=== PATIENT | female | born 1955 | race African-American/Black ===

== ENCOUNTER 2023-08-03 07:09 | Inpatient (IN) | payer OTHER, SELFPAY ==
[2023-08-03] VITALS (11 sets, daily range): BP systolic 102–157; BP diastolic 57–123; BMI 30.6
--- NOTE | 2023-08-03 01:43 | ED.GENMED ---
History of Present Illness
<DUANE Cross - Last Filed: 08/03/23 05:30>
General
Chief Complaint: Breathing Problem
Source: patient and family
Exam Limitations: none
Time Seen by Provider: 08/03/23 01:16
Nursing documentation reviewed up to this point in time: agreed with
Travel History
Have you had any contact with someone who has COVID-19?: No
Do you have any symptoms of coronavirus? Fever > 100 degrees, chills, cough, shortness of breath, sore throat, loss of taste or smell, muscle aches, or headache?: Yes
Symptoms:: increased work of breathing
History of Present Illness
History of Present Illness:
This is a 67 year old female, with a PMH of HTN, DM, HLD, and asthma, who presents to the ED with her daughter c/o SOB x 23 hours. Pt states she awoke yesterday around 4 am with shortness of breath and used a nebulizer treatment 2 hours later, which
did not help alleviate her symptoms. She used her albuterol inhaler once which also did not help. Her symptoms are constant. Pt is also experiencing chest tightness which started around the same time. Position changes do not help to alleviate her
symptoms. Pt has had previous asthma exacerbations and these symptoms feel similar to those in the past. She denies any cough, congestion, sore throat, fever, chills, n/v, jaw pain, or arm pain.
Pt has not seen a amusement or recreation card checker and was told her PCP would recommend one for her. She last saw her PCP 07/18/23, but denies any changes to her medical history or medications. Pt has a family hx of asthma and DM, denies any family hx of CAD. Denies
tobacco, alcohol, or drug use.
Past History
<DUANE Cross - Last Filed: 08/03/23 05:30>
Past History
ED Past Medical History: Asthma, HTN, Hypercholesterolemia, IDDM, Other (Obesity, elevated IgE level) and Other (History of pneumonia, frequent urination; acute renal failure, questionably related to ELKIN inhibitor that was initiated August 2012
hospitalization.)
ED Past Surgical History: Other (Tubal ligation 20 years ago)
Patient has exhibited threatening behavior?: No
Social History
Tobacco: Former smoker
Alcohol: None
Drug: None
Personal: Single
Living: with family
Employment: Not employed
Family History
Family History: Diabetes, CAD and Other (Mother with renal disease)
Review of Systems
<DUANE Cross - Last Filed: 08/03/23 05:30>
Review of Systems
Allergies reviewed?: Yes
Other source history: family
Constitutional: Reports no symptoms; Denies fever or chills
EENT: Reports no symptoms; Denies sore throat or runny nose
Respiratory: Reports trouble breathing and other (chest tightness); Denies cough
Cardiac: Reports chest pain (chest tightness); Denies palpitations
ABD/GI: Reports no symptoms; Denies nausea or vomiting
Musculoskeletal: Reports no symptoms
Skin: Reports no symptoms
Neurological: Reports no symptoms
Phy Exam
<DUANE Cross - Last Filed: 08/03/23 05:30>
General Physical Exam
General Presentation: moderate distress
General age: appears stated age
General Skin: warm and dry
General Habitus: obese
General Mental: alert and anxious
General Hydration: appears well hydrated
ENT Exam
ENT Exam: pharynx normal, neck supple, normocephalic and swallowing well
Cardiovascular Exam
Cardiovascular Exam: regular rate/rhythm, no edema and no murmur
Heart Sounds: normal
Pulmonary Exam
Pulmonary Exam: decreased breath sounds, respiratory distress and other (speaking in 2-3 word sentences)
Respiratory Effort: tachypnea
Oxygen Status: room air
Cough: no cough
Respirations: moderate effort
Breath Sounds: Absent breath sounds: generalized
Gastrointestinal Exam
Gastrointestinal Exam: normal bowel sounds, non tender, soft and non distended
Palpation: generalized: No tenderness
Neurological Exam
Neurological Exam: alert and oriented x3
Musculoskeletal Exam
Musculoskeletal Exam: no edema
Skin Exam
Skin Exam: normal color and warm/dry
Psychiatric Exam
Psychiatric Exam: normal mood/affect
Scores
<DUANE Cross - Last Filed: 08/03/23 05:30>
Heart Failure Risk
Heart Failure Risk Score: Not Applicable
Course
<DUANE Cross - Last Filed: 08/03/23 05:30>
Orders/Labs/Results
Orders:
Orders
08/03/23 01:03
Electrocardiogram (*1) Urgent
Reason for Study: Other
Other Reason for Exam: Respiratory Distress
Cardiac Monitoring- Treatment ONCE
EKG- Treatment ONCE
IV Insert/Care/Rem.- Treatment PRN
CR Chest - 2 Views Urgent
Comment:
Reason For Exam: respiratory distress
O2 Therapy [RESP] Urgent
Titrate/Wean O2 to maintain O2 sat greater than (%): 93
Special Instructions: TO MAINTAIN CONTINUOUS O2 SATS >/= 93%
Pulse Ox/cont/shift [RESP] Urgent
Quantity: 1
Special Instructions: continuous pulse ox
08/03/23 01:34
Complete Blood Count/With Diff Urgent
Comprehensive Metabolic Panel Urgent
NT-proBNP Urgent
Troponin I Urgent
08/03/23 02:15
Ipratropium/Albuterol Sulfate [Duoneb] 3 ml INH R NOW ONE
08/03/23 02:25
Nitroglycerin Sublingual [Nitrostat (Sublingual)] 0.4 mg SL [id number] PRN
08/03/23 04:00
EKG [Electrocardiogram (*1)] Urgent
Reason for Study: Chest Pain
08/03/23 04:01
Troponin I Urgent
08/03/23 05:21
Albuterol Sulfate [Ventolin Nebules] 10 mg INH R NOW STA
Dexamethasone Sod Phosphate [Decadron] 10 mg IV NOW STA
08/03/23 06:22
COVID-19 Antigen Urgent
Source: Nasal Swab
Influenza A+B Rapid Molecular Urgent
UTE Source: Nasal Swab
Specimen Description:
Abnormal Lab Results
08/03/23
01:34
RBC 3.82 L 10^6/uL
(4.20-5.40)
Hgb 10.6 L g/dL
(12.0-16.0)
Hct 32.6 L %
(37.0-47.0)
MCHC 32.5 L g/dL
(33.0-37.0)
Neutrophils % 39.7 L %
(42.2-75.2)
Monocytes % 9.5 H %
(1.7-9.3)
BUN 23 H mg/dl
(7-17)
Glucose 292 H mg/dl
(70-99)
Troponin I 0.035 H* ng/ml
08/03/23 01:34
08/03/23 01:34
Vital Signs
Initial and Last Documented VS:
Initial Vital Signs
Temp Pulse Resp BP Pulse Ox
98.3 F 100 28 157/87 100
08/03/23 01:00 08/03/23 01:00 08/03/23 01:00 08/03/23 01:00 08/03/23 01:00
Last Documented Vital Signs
Temp Pulse Resp BP Pulse Ox
98.3 F 112 15 143/83 98
08/03/23 01:00 08/03/23 06:00 08/03/23 06:00 08/03/23 06:00 08/03/23 06:15
<Giorgio Leonard, - Last Filed: 08/03/23 06:42>
Orders/Labs/Results
Orders:
Orders
08/03/23 01:03
Electrocardiogram (*1) Urgent
Reason for Study: Other
Other Reason for Exam: Respiratory Distress
Cardiac Monitoring- Treatment ONCE
EKG- Treatment ONCE
IV Insert/Care/Rem.- Treatment PRN
CR Chest - 2 Views Urgent
Comment:
Reason For Exam: respiratory distress
O2 Therapy [RESP] Urgent
Titrate/Wean O2 to maintain O2 sat greater than (%): 93
Special Instructions: TO MAINTAIN CONTINUOUS O2 SATS >/= 93%
Pulse Ox/cont/shift [RESP] Urgent
Quantity: 1
Special Instructions: continuous pulse ox
08/03/23 01:34
Complete Blood Count/With Diff Urgent
Comprehensive Metabolic Panel Urgent
NT-proBNP Urgent
Troponin I Urgent
08/03/23 02:15
Ipratropium/Albuterol Sulfate [Duoneb] 3 ml INH R NOW ONE
08/03/23 02:25
Nitroglycerin Sublingual [Nitrostat (Sublingual)] 0.4 mg SL [id number] PRN
08/03/23 04:00
EKG [Electrocardiogram (*1)] Urgent
Reason for Study: Chest Pain
08/03/23 04:01
Troponin I Urgent
08/03/23 05:21
Albuterol Sulfate [Ventolin Nebules] 10 mg INH R NOW STA
Dexamethasone Sod Phosphate [Decadron] 10 mg IV NOW STA
08/03/23 06:22
COVID-19 Antigen Urgent
Source: Nasal Swab
Influenza A+B Rapid Molecular Urgent
UTE Source: Nasal Swab
Specimen Description:
Abnormal Lab Results
08/03/23
01:34
RBC 3.82 L 10^6/uL
(4.20-5.40)
Hgb 10.6 L g/dL
(12.0-16.0)
Hct 32.6 L %
(37.0-47.0)
MCHC 32.5 L g/dL
(33.0-37.0)
Neutrophils % 39.7 L %
(42.2-75.2)
Monocytes % 9.5 H %
(1.7-9.3)
BUN 23 H mg/dl
(7-17)
Glucose 292 H mg/dl
(70-99)
Troponin I 0.035 H* ng/ml
08/03/23 01:34
08/03/23 01:34
Vital Signs
Initial and Last Documented VS:
Initial Vital Signs
Temp Pulse Resp BP Pulse Ox
98.3 F 100 28 157/87 100
08/03/23 01:00 08/03/23 01:00 08/03/23 01:00 08/03/23 01:00 08/03/23 01:00
Last Documented Vital Signs
Temp Pulse Resp BP Pulse Ox
98.3 F 112 15 143/83 98
08/03/23 01:00 08/03/23 06:00 08/03/23 06:00 08/03/23 06:00 08/03/23 06:15
<DUANE Cross - Last Filed: 08/03/23 05:30>
*Critical Care Note
Total Time (30-74mins, 75-104mins- exclusive of procedures): Not Applicable
ED Attending Note
<DUANE Cross - Last Filed: 08/03/23 05:30>
-
Portions of this chart may have been created with voice recognition software.� Occasional wrong word or��sound alike� substitutions may have occurred due to the inherent limitations of voice recognition software.
<Giorgio Leonard, - Last Filed: 08/03/23 06:42>
ED Attending Note
Patient seen and examined by attending physician: Yes
I performed the substantive portion of visit, reviewed & personally made and approve the management plan that is documented in note by myself or JAKE.: Yes
ED Attending Note:
This a pleasant 59-year-old female presents with shortness of breath for the last day. She states that she awakened yesterday around 4 AM with shortness of breath. She did use her nebulizer which did not seem to help. Patient states that she has
tightness and squeezing in her chest.
Vital signs are stable. Patient not hypoxic
Nursing note reviewed. I agree with nursing documentation up to this point in time.
Home Meds and allergies reviewed.
NUMBER AND COMPLEXITY OF PROBLEMS ADDRESSED AT THE ENCOUNTER
� Chronic conditions affecting care: Insulin-dependent diabetes mellitus, hypertension, hyperlipidemia
� Acute Exacerbation and/or Progression of Chronic Illness: Asthma exacerbation
� Differential Diagnosis includes: Asthma, ischemia, ACS, musculoskeletal chest pain
AMOUNT AND/OR COMPLEXITY OF DATA TO BE REVIEWED AND ANALYZED
I performed an independent evaluation of the following and my interpretation is:
EKG: EKG shows sinus rhythm rate of 89 with normal intervals, normal axis. Nonspecific T wave changes from previous EKG dated November 23, 2022.
CT:
X-rays: Possible right lower lobe pneumonia.
Ultrasound:
Laboratory Studies: Troponin 0.035, BMP is 0.035
Other:
Review of other/old records: Echocardiogram dated 11/27/2022: Left ejection fraction is 60 to 65%. There is trace tricuspid regurg.
Clinical information was obtained by an independent historian: Family present at the bedside
Prescriptions/Medications Considered but not given: Aspirin considered but patient allergic
Further testing considered but not performed:
RISK OF COMPLICATIONS AND/OR MORBIDITY OR MORTALITY OF PATIENT MANAGEMENT
Social determinants of health affecting care: Good Social Support
Discussion with other providers:
Escalation of care including admission/observation vs risk of discharge considered:
CRITICAL CARE NOTE:
Total Time (exclusive of procedures):
Update:
Discharge Plan
Departure
Patient Disposition: Admit
Date of Disposition: 08/03/23
Time of Disposition: 06:35
Admit to: Telemetry
Presentation/result/management discussed w/ accepting MD/DO: Hospitalist
Condition: Good
Discharge Problem:
Asthma exacerbation in COPD
Prescriptions:
No Action
sertraline [Zoloft] 100 mg Tablet
200 mg PO DAILY Qty: 0
Patient Comments:
Pt states she cannot take generic form of this med (noted 02/02/19).
Rx Instructions:
BRAND NECESSARY
quetiapine [Seroquel] 300 mg tablet
300 mg PO HS
Rx Instructions:
BRAND NECESSARY
lisinopril-hydrochlorothiazide 10-12.5 mg tablet
1 tab PO DAILY Qty: 30 0RF
albuterol sulfate [Ventolin HFA] 90 mcg/actuation HFA aerosol inhaler
4 puff inhalation Q2H PRN (Reason: shortness of breath or wheezing) Qty: 8.5 0RF
Rx Instructions:
give with spacer
insulin glargine [Lantus Solostar U-100 Insulin] 300 UNITS/3 ML insulin pen
30 unit SC HS Qty: 0 0RF
insulin aspart U-100 [Novolog FlexPen U-100 Insulin] 300 UNITS/3 ML insulin pen
20 unit SC AC
Referrals:
PRIVATE,PHYSICIAN [Family Provider] -
Interventions
Interventions:
*Risk Screen - Suicide Last Done: 08/03/23 01:40
*Neglect/Abuse Screening Last Done: 08/03/23 01:40
ED- Fall Risk Assessment Last Done: 08/03/23 01:37
*ED COVID-19 Vaccine History Last Done: 08/03/23 02:45
ED- Cardiac Assessment Last Done: 08/03/23 01:37
ED- Pulmonary Assessment Last Done: 08/03/23 01:37
[2023-08-03 01:57] LABS: % Basophils 0.9 % (0-2); % Eosinophils 2.7 % (0-6); % Immature Granulocytes 0.2 % (0-0.5); % Monocytes 9.5 % (1.7-9.3); % Neutrophils 39.7 % (42.2-75.2); Absolute Basophils 0.1 10^3/uL (0-0.2); Absolute Eosinophils 0.2 10^3/uL (0-0.7); Absolute Lymphocytes 2.6 10^3/uL (1.2-3.4); Absolute Monocytes 0.5 10^3/uL (0.1-0.6); Absolute Neutrophils 2.2 10^3/uL (1.4-6.5); Hematocrit 32.6 % (37.0-47.0); Hemoglobin 10.6 g/dL (12.0-16.0); Mean Corp Hgb Conc. 32.5 g/dL (33.0-37.0); Mean Corpuscular Hgb 27.7 pg (27.0-31.0); Mean Corpuscular Volume 85.3 fL (81.0-99.0); Nucleated Red Blood Cells % 0 %; Platelet Count 231 10^3/uL (130-400); Red Blood Cell Count 3.82 10^6/uL (4.20-5.40); Red Cell Dist. Width 13.9 % (11.5-14.5); White Blood Cell Count 5.6 10^3/uL (4.8-10.8)
[2023-08-03 02:05] LABS: ALT (SGPT) 15 U/L (0-35); AST (SGOT) 22 U/L (14-36); Albumin 3.9 g/dl (3.5-5.0); Alkaline Phosphatase 78 U/L (38-126); Blood Urea Nitrogen 23 mg/dl (7-17); Calcium 9.5 mg/dl (8.4-10.2); Carbon Dioxide 28 mmol/L (22-30); Chloride 101 mmol/L (98-107); Estimated Creatinine Clearance 53 ml/min; Glucose 292 mg/dl (70-99); Potassium 4.3 mmol/L (3.5-5.1); Sodium 139 mmol/L (135-145); Total Bilirubin 0.5 mg/dl (0.2-1.3); Total Protein 6.6 g/dl (6.3-8.2); eGFR > 60.00
[2023-08-03 02:17] LABS: NT-proBNP 199 pg/ml; Troponin I 0.035 ng/ml
[2023-08-03] MEDS: DUONEB 3 ML INH ×4 (02:45→20:44)
[2023-08-03] MEDS: NITROSTAT (SUBLINGUAL) 0.400000000000000022 MG SL ×4 (02:45→23:20)
[2023-08-03 04:48] LABS: Troponin I 0.032 ng/ml
[2023-08-03] MEDS: VENTOLIN NEBULES 10 MG INH (05:24)
[2023-08-03] MEDS: DECADRON 10 MG IV (05:25)
--- NOTE | 2023-08-03 06:41 | HPS.HSE ---
Family Physician
-
Family Physician: PHYSICIAN PRIVATE
Chief Complaint
-
SOB
History of Present Illness
Patient is a 67y F with PMH significant for asthma, HTN and DM-II who presents to ED complaining of SOB. Patient states that she woke AM around 4 Am with SOB and some chest tightness / heaviness. Her symptoms were similar to prior
exacerbations of asthma. Patient has been using home inhalers / nebulizers for the past day or so without significant improvement in her symptoms. Patient denies significant cough, fevers / chills, N/V/D, etc.
She states that she felt completely well on Sunday evening when going to bed.
No recent travel and no known sick contacts.
Patient has had multiple such episodes in the past.
In the ED, patient is only minimally improved after hour-long neb.
Medical History
Past Medical History
Past Medical History: Reports Other
Additional Past Medical History:
Moderate Persistent Asthma
Obesity
Bipolar Depression
Hypertension
Anemia of Chronic Disease
DM-II
Past Surgical History: Reports Other
Additional Past Surgical History:
Tubal Ligation
Social History
Tobacco: Former Smoker (Quit smoking 35 years ago. Approx 10 pack years total use.)
Alcohol: None
Drug: None
Family History
Family History: Not pertinent
Allergies / Home Medications
Allergies reflects when Allergies were last updated in [facility].
Home Medications with original date entered in [facility]
Allergy/Medication List:
Allergies
Allergy/AdvReac Type Severity Reaction Status Date / Time
aspirin [Aspirin] Allergy N/V/dizzine Verified 08/03/23 01:03
ss
shellfish derived Allergy SWELLING/SO Verified 08/03/23 01:03
B
Home Medications
sertraline 100 mg tablet (Zoloft) 200 mg PO DAILY Mental Health/Anxiety ##0 02/02/19
quetiapine 300 mg tablet (Seroquel) 300 mg PO HS Mental Health/Anxiety 11/23/22
albuterol sulfate 90 mcg/actuation aerosol inhaler (Ventolin HFA) 4 puff inhalation Q2H PRN shortness of breath or wheezing #8.5 grams 11/28/22
insulin glargine 100 unit/mL (3 mL) subcutaneous pen (Lantus Solostar U-100 Insulin) 30 unit (0.3 mL) SC HS Diabetes #0 mL 11/28/22
lisinopril 10 mg-hydrochlorothiazide 12.5 mg tablet 1 tab PO DAILY #30 tabs 11/28/22
insulin aspart U-100 100 unit/mL (3 mL) subcutaneous pen (Novolog FlexPen U-100 Insulin aspart) 20 unit SC AC Diabetes 08/03/23
Review of Systems
-
History Source: Patient
A 12 point ROS was completed and negative except as noted: Yes
Constitutional: Reports Fatigue; Denies Fever or Chills
Respiratory: Reports Trouble Breathing; Denies Cough or Hemoptysis
Cardiac: Reports Chest Pain and Palpitations; Denies Diaphoresis or Syncope
Abdomen/GI: Denies Abdominal Pain, Nausea, Vomiting or Diarrhea
: Denies Dysuria or Frequency
Musculoskeletal: Denies Joint Pain or Edema
Neurological: Denies Dizzy or Headache
Psych: Reports Depression and Anxiety
Physical Exam
Vital Signs
Vital Signs
Temp Pulse Resp BP Pulse Ox
98.3 F 112 15 143/83 98
08/03/23 01:00 08/03/23 06:00 08/03/23 06:00 08/03/23 06:00 08/03/23 06:15
Physical Exam
General: Other (67y F tremulous and in moderate distress due to dyspnea.)
HEENT: Moist mucous membranes and Other (Thick neck.)
Respiratory: Other (Markedly diminished breath sounds throughout.)
Cardiac: S1/S2 and Tachycardia; No Murmur
GI: Soft, Non Tender, Non Distended and Normal Bowel Sounds
Musculoskeletal: No Clubbing, No Cyanosis and No Edema
Neuro: AO x 3
Laboratory Results
-
08/03/23 01:34
08/03/23:34
Laboratory Results
Total Bilirubin 0.5 mg/dl (0.2-1.3) 08/03/23 01:34
AST 22 U/L (14-36) 08/03/23 01:34
ALT 15 U/L (0-35) 08/03/23 01:34
Alkaline Phosphatase 78 U/L (38-126) 08/03/23 01:34
Troponin I 0.032 ng/ml 08/03/23 04:01
Impression/Plan
-
A/P: Patient is a 67y F with PMH significant for asthma, DM-II and hypertension who presents to ED complaining of SOB x 24 hours.
Asthma with Acute Exacerbation
- Admit for further evaluation and treatment.
- Markedly diminished breath sounds / air movement on exam.
- Multiple prior episodes with similar presentation - last admitted here 11/2022.
- Patient takes no daily controlled medications, etc for her asthma - which is at least moderate.
- IV steroids, nebs, supportive care, etc.
- Use Xopenex PRN to try and minimize tremulousness / tachycardia.
- Pulmonary evaluation for additional recommendations.
- Patient would benefit from ongoing Pulmonary follow-up as an outpatient and -likely - maintenance medication(s).
- Follow for clinical improvement and taper steroids as able.
DM-II
- Stable. Continue basal : bolus insulin regimen.
- Update A1C.
Benign Hypertension
- Stable. Continue lisinopril.
- Adjust regimen as needed.
Anemia of Chronic Disease
- Hgb is near known baseline. No reported evident blood loss, etc.
- Check iron studies, heme test stools, etc.
- Follow H&H for any changes.
Abnormal Troponin
- Suspect non-MO troponin elevation due to asthma, tachycardia, etc.
- Continue to follow troponin for changes.
- Monitor for any new / worsening chest pain, etc.
- Monitor on telemetry for now.
Bipolar Depression
- Anxious in the ED likely due to combination of dyspnea and albuterol.
- Continue usual home medications.
DVT Prophylaxis: Lovenox
Code Status: Full
[2023-08-03 06:59] LABS: COVID-19 Antigen Negative (Negative)
[2023-08-03 09:26] LABS: Glucose - Point of Care 295 mg/dl (70-99)
--- NOTE | 2023-08-03 09:29 | W.PN.HOSP.TC ---
Today's Communication/Plan
-
Continue nebs, steroids
D-dimer
Pulmonary consult
Assessment / Plan
Assessment / Plan
Gen-AAOx3, NAD, obese
HEENT-NC, AT, anicteric, clear oral mm
Neck-supple
CV-reg, no M, +S1/S2
Lungs-decreased breath sounds bilaterally
Abd-soft, NT, ND
Ext-no edema
Musculoskeletal-no cyanosis, clubbing
Skin-warm and dry
Neuro-grossly non-focal
Psych-calm, cooperative
Acute hypoxic respiratory insufficiency -differential diagnosis includes acute asthma exacerbation, pulmonary embolism, etc. No evidence of heart failure. Chest x-ray read as clear, low lung volumes. Check D-dimer. Pulse ox normal on room air.
Acute asthma exacerbation -not wheezing on exam but does have significantly decreased breath sounds bilaterally. Continue steroids, nebs. Pulmonary consulted. On Flovent and albuterol at home on as needed basis. 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
Troponin elevation -repeat troponin normal. Suspect initial troponin elevation is a non-LA troponin elevation related to acute asthma exacerbation.
Chronic normocytic anemia -will need outpatient follow-up with PCP.
DM2 with hyperglycemia -glucose 292 this morning. Resume home insulin regimen. Anticipate steroid-induced hyperglycemia as well.
Essential hypertension with hypertensive urgency -repeat blood pressure improving. Resume home medications.
Bipolar depression
obesity due to excess calories
Full code
Anticipated Discharge: 24 - 48 hours
Subjective/Interval History
-
Date of Service: August 03, 2023
Patient seen and examined. Complaining of shortness of breath. Looks otherwise comfortable.
Objective Data
-
Labs:
Laboratory Results
08/03/23
01:34
WBC 5.6
Hgb 10.6 L
Hct 32.6 L
Plt Count 231
Sodium 139
Potassium 4.3
Chloride 101
Carbon Dioxide 28
BUN 23 H
Creatinine 1.0
Glucose 292 H
Calcium 9.5
Total Bilirubin 0.5
AST 22
ALT 15
Alkaline Phosphatase 78
Vital Signs:
Vital Signs
Temp Pulse Resp BP Pulse Ox
98.4 F 104 24 157/90 99
08/03/23 08:46 08/03/23 08:46 08/03/23 08:46 08/03/23 08:46 08/03/23 08:46
Review of Systems
-
History Source: Patient
All other systems: Reviewed and negative
[2023-08-03 09:33] LABS: Troponin I 0.034 ng/ml
--- NOTE | 2023-08-03 10:00 | PTCARENOTE ---
Rec'd Pt from ED to Room 418-1, [address]. Pt ambulated from stretcher to bed. Pt is AOOx3. Oriented to room with call benavidez in place.
[2023-08-03] MEDS: ZOLOFT 200 MG PO (10:21)
[2023-08-03] MEDS: ZESTRIL 10 MG PO (10:21)
[2023-08-03] MEDS: NOVOLOG FLEXPEN 20 UNITS SC ×3 (10:21→18:33)
[2023-08-03] MEDS: NOVOLOG FLEXPEN-MODERATE RESISTANCE 3 UNITS SC (10:22)
[2023-08-03] MEDS: SEROQUEL 300 MG PO (11:25)
--- NOTE | 2023-08-03 11:42 | CON.PUL ---
Addendum entered and electronically signed by Vernon Ga MD 08/03/23 13:57:
CT angiogram reviewed: Showed no acute pulmonary embolism. No evidence for pneumonia.
With diminished breath sounds bilaterally: Similar to prior presentations here at [facility].
Continue with asthma exacerbation therapy for now.
I again stressed the point to the patient for the need to follow-up.
Original Note:
Consultation
Consultation Request
Date/Time Consultation Requested: 08/03/2023
Date/Time Consultation Performed: 08/03/2023
Requesting Provider: Dr. Roland
Performing Provider: Dr. Vernon Quinones
Reason for Consultation: Exertional dyspnea-acute asthma exacerbation.
Medical History
-
History of Present Illness:
67-year-old woman with history of asthma, hypertension, type 2 diabetes came to the emergency room on 08/02/2023 complaining of shortness of breath. Patient states that she woke up at 4 AM on with shortness of breath and chest tightness.
Patient's have been using her nebulizer at home without improvement. Denies any phlegm production, hemoptysis, fevers or chills.
She has been feeling well up until .
Denies any recent sick contacts. Denies any leg edema.
Symptoms did not improve with intensive nebulizer in the emergency room and she was admitted for further evaluation.
Patient has been admitted in the past for similar presentations, last time on 11/2022.
Past Medical History
Past Medical History: Other (See assessment and plan section)
Allergies / Home Medications
Allergies
Allergy/AdvReac Type Severity Reaction Status Date / Time
aspirin [Aspirin] Allergy N/V/dizzine Verified 08/03/23 01:03
ss
shellfish derived Allergy SWELLING/SO Verified 08/03/23 01:03
B
Home Medications
Medication Instructions Recorded Confirmed Last Taken Type
sertraline 100 mg tablet (Zoloft) 200 mg PO DAILY Mental 02/02/19 08/03/23 02/02/19 History
Health/Anxiety ##0
quetiapine 300 mg tablet (Seroquel) 300 mg PO HS Mental Health/Anxiety 11/23/22 08/03/23 Unknown History
albuterol sulfate 90 mcg/actuation 4 puff inhalation Q2H PRN 11/28/22 08/03/23 Unknown Rx
aerosol inhaler (Ventolin HFA) shortness of breath or wheezing
#8.5 grams
insulin glargine 100 unit/mL (3 30 unit (0.3 mL) SC HS Diabetes #0 11/28/22 08/03/23 Unknown Rx
mL) subcutaneous pen (Lantus mL
Solostar U-100 Insulin)
lisinopril 10 1 tab PO DAILY #30 tabs 11/28/22 08/03/23 Unknown Rx
mg-hydrochlorothiazide 12.5 mg
tablet
insulin aspart U-100 100 unit/mL 20 unit SC AC Diabetes 08/03/23 08/03/23 Unknown History
(3 mL) subcutaneous pen (Novolog
FlexPen U-100 Insulin aspart)
Review of Systems
Vitals / Labs / Diagnostic Testing
Vital Signs
Temp Pulse Resp BP Pulse Ox
98.4 F 104 24 157/90 99
08/03/23 08:46 08/03/23 08:46 08/03/23 08:46 08/03/23 08:46 08/03/23 08:46
Lab Data
08/03/23 01:34
08/03/23 01:34
Microbiology
08/03/23 06:30 Nasal Swab Influenza Types A & B (ALLAN) - Final
Negative for Influenza A & B, NAAT
Negative results must be combined with clinical observations
and patient history.
Nucleic Acid Amplification test (NAAT)performed on the
[employer] platform.
Diagnostic Testing:
Physical Exam
-
HEENT: Normocephalic
Cardiovascular: S1/S2
Respiratory: Clear and Non-Labored Respirations
GI: Soft and Non Distended
Neurology: Awake
Skin: Warm
General: Respiratory Distress (n)
Assessment
-
67-year-old woman with history of asthma, hypertension, type 2 diabetes came to the emergency room on 08/02/2023 complaining of shortness of breath. Patient states that she woke up at 4 AM on with shortness of breath and chest tightness.
Patient's have been using her nebulizer at home without improvement. Denies any phlegm production, hemoptysis, fevers or chills.
She has been feeling well up until .
Denies any recent sick contacts. Denies any leg edema.
Symptoms did not improve with intensive nebulizer in the emergency room and she was admitted for further evaluation.
Exertional dyspnea: -Multifactorial: Possible asthma exacerbation/with increased D-dimer rule out pulm embolic disease.
Chest x-ray 08/03/2023, reviewedwithout acute abnormalities. Low lung volumes.
Normal proBNP/slightly increased troponin on admission-now normalized
Slightly increased D-dimer.
SARS Cov2 negative
Flu negative
Conditions present prior admission:
Morbid obesity
Asthma, not well controlled
Triggers include seasonal allergies
Has 3 cats at home
Does not follow with OP Pulm
Allergic rhinitis
IgE 08/13/14: 892 - 06/01/14: 997 - 06/13/08: 4121
Bipolar disorder
Hypertension
Anemia of chronic disease
Suspected obstructive sleep apnea-she has never had a sleep study
Type 2 diabetes
Echocardiogram 11/27/2022:Moderate LVH.
Normal LVEF. Normal right ventricle size and function. No significant valvular abnormalities.
Plan recommendations:
Continue with management of asthma exacerbation-Decreased breath sounds on exam.
IV dexamethasone-hopefully rapid taper
Nebulizer therapy
With increased D-dimer: Agree with CT angiogram to rule out pulmonary embolism. Patient had similar presentations in the past with negative VQ scan and lower extremity Dopplers.
She is at high risk for thromboembolic disease due to obesity and sedentary lifestyle.
-
She has been recommended in the past to follow-up with pulmonary given allergic asthma but she has not followed through.She does not take any maintenance inhalers in the outpatient setting.
She has been recommended to get a sleep apnea evaluation and she has not followed through.
-
Hyperglycemia management per primary team.
Hopefully can taper steroids rather quickly.
-
Continue DVT prophylaxis for now- With Lovenox.
-
Will continue to follow
[2023-08-03] MEDS: DUONEB INH (11:56)
[2023-08-03 12:10] LABS: Glucose - Point of Care 267 mg/dl (70-99)
[2023-08-03] MEDS: NOVOLOG FLEXPEN-MODERATE RESISTANCE 5 UNITS SC ×2 (12:53→18:33)
[2023-08-03 17:47] LABS: Glucose - Point of Care 272 mg/dl (70-99)
[2023-08-03] MEDS: DECADRON 4 MG IV ×2 (18:32→23:24)
[2023-08-03] MEDS: LOVENOX 40 MG SC (18:33)
[2023-08-03 21:01] LABS: Glucose - Point of Care 133 mg/dl (70-99)
[2023-08-03] MEDS: TYLENOL 650 MG PO (21:27)
[2023-08-03] MEDS: LANTUS 0.299999999999999989 UNITS SC (21:28)
--- NOTE | 2023-08-03 23:06 | PTCARENOTE ---
Patient given PRN Tylenol PO for pain level of 7. Pt is now comfortable and resting.
[2023-08-03] MEDS: FLUSH (NSS) 1 FLUSH IV (23:25)
[2023-08-04] VITALS (7 sets, daily range): BP systolic 126–152; BP diastolic 71–92; BMI 29.8
[2023-08-04] MEDS: NITROSTAT (SUBLINGUAL) 0.400000000000000022 MG SL (02:44)
--- NOTE | 2023-08-04 02:46 | PTCARENOTE ---
Addendum entered by Sherri Stoner RN 08/04/23 02:55:
2L 02 applied.
Original Note:
Pt. c/o mid sternal chest pain, 02/01, Nitro given per AUG, EKG done, notified CARISSA Mills, will continue to monitor.
[2023-08-04] MEDS: MORPHINE SULFATE 1 MG IV (03:36)
[2023-08-04] MEDS: FLUSH (NSS) 1 FLUSH IV (03:37)
[2023-08-04] MEDS: DUONEB 3 ML INH ×4 (07:28→18:17)
[2023-08-04 07:41] LABS: Glucose - Point of Care 169 mg/dl (70-99)
[2023-08-04] MEDS: NOVOLOG FLEXPEN-MODERATE RESISTANCE 1 UNITS SC (08:28)
[2023-08-04] MEDS: NOVOLOG FLEXPEN 20 UNITS SC ×3 (08:28→17:30)
[2023-08-04] MEDS: DECADRON 4 MG IV ×2 (08:28→17:30)
[2023-08-04] MEDS: ZOLOFT 200 MG PO (08:29)
[2023-08-04] MEDS: ZESTRIL 10 MG PO (08:29)
--- NOTE | 2023-08-04 10:38 | W.PN.HOSP.TC ---
Today's Communication/Plan
-
Psychiatry consult
As needed Xanax
Assessment / Plan
Assessment / Plan
Gen-AAOx3, NAD, obese
HEENT-NC, AT, anicteric, clear oral mm
Neck-supple
CV-reg, no M, +S1/S2
Lungs-decreased breath sounds bilaterally
Abd-soft, NT, ND
Ext-no edema
Musculoskeletal-no cyanosis, clubbing
Skin-warm and dry
Neuro-grossly non-focal
Psych-calm, cooperative
Acute hypoxic respiratory insufficiency -differential diagnosis includes acute asthma exacerbation, pulmonary embolism, etc. No evidence of heart failure. Chest x-ray read as clear, low lung volumes. Elevated D-dimer noted but CT chest negative
for pulmonary embolism.
Acute asthma exacerbation -not wheezing on exam but does have significantly decreased breath sounds bilaterally. Continue steroids, nebs. Pulmonary following. On Flovent and albuterol at home on as needed basis. 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
Anxiety disorder -suspect she also gets panic attacks. Consult psychiatry. As needed Xanax ordered. Not on benzodiazepines at home.
Troponin elevation - Suspect troponin elevation is a non-UT troponin elevation related to acute asthma exacerbation. Repeat troponins are lower.
Chronic normocytic anemia -will need outpatient follow-up with PCP.
DM2 with hyperglycemia -glucose 169 this morning. Anticipate steroid-induced hyperglycemia as well. Hemoglobin A1c 9.0%. Continue Lantus 30 units at bedtime, aspart 20 units AC, moderate dose aspart scale.
Essential hypertension with hypertensive urgency -repeat blood pressure improving. Resume home medications.
Bipolar depression
obesity due to excess calories
Full code
Anticipated Discharge: Within 24 hours
Subjective/Interval History
-
Date of Service: August 04, 2023
Patient seen and examined. Complaining of shortness of breath, chest tightness. Looked very comfortable when I walked in the room.
Objective Data
-
Labs:
Laboratory Results
08/04/23
06:00
WBC Pending
Hgb Pending
Hct Pending
Plt Count Pending
Sodium Pending
Potassium Pending
Chloride Pending
Carbon Dioxide Pending
BUN Pending
Creatinine Pending
Glucose Pending
Calcium Pending
Vital Signs:
Vital Signs
Temp Pulse Resp BP Pulse Ox
97.9 F 86 18 149/84 100
08/04/23 07:25 08/04/23 07:31 08/04/23 07:31 08/04/23 07:25 08/04/23 07:31
I&O
08/03/23 08/04/23 08/05/23
06:59 06:59 06:59
Intake Total 1080 / 1080
Balance 1080 / 1080
Review of Systems
-
History Source: Patient
All other systems: Reviewed and negative
[2023-08-04 12:37] LABS: Glucose - Point of Care 114 mg/dl (70-99)
[2023-08-04] MEDS: NOVOLOG FLEXPEN-MODERATE RESISTANCE SC ×2 (12:40→17:05)
--- NOTE | 2023-08-04 12:50 | W.PN.PUL.V3 ---
Today's Communication / Plan
-
Continue nebulizers
Supplemental oxygen as needed
No change in Decadron
Increase activity
Outpatient pulmonary follow-up
Assessment
-
67-year-old woman with history of asthma, hypertension, type 2 diabetes came to the emergency room on 08/02/2023 complaining of shortness of breath. Patient states that she woke up at 4 AM on with shortness of breath and chest tightness.
Patient's have been using her nebulizer at home without improvement. Denies any phlegm production, hemoptysis, fevers or chills.
She has been feeling well up until .
Denies any recent sick contacts. Denies any leg edema.
Symptoms did not improve with intensive nebulizer in the emergency room and she was admitted for further evaluation.
Exertional dyspnea: -Multifactorial: Possible asthma exacerbation/with increased D-dimer rule out pulm embolic disease.
Chest x-ray 08/03/2023, reviewedwithout acute abnormalities. Low lung volumes.
Normal proBNP/slightly increased troponin on admission-now normalized
Slightly increased D-dimer.
SARS Cov2 negative
Flu negative
Conditions present prior admission:
Morbid obesity
Asthma, not well controlled
Triggers include seasonal allergies
Has 3 cats at home
Does not follow with OP Pulm
Allergic rhinitis
IgE 08/13/14: 892 - 06/01/14: 997 - 06/13/08: 4121
Bipolar disorder
Hypertension
Anemia of chronic disease
Suspected obstructive sleep apnea-she has never had a sleep study
Type 2 diabetes
Echocardiogram 11/27/2022:Moderate LVH.
Normal LVEF. Normal right ventricle size and function. No significant valvular abnormalities.
Plan recommendations:
Respiratory status still somewhat tenuous
Supplemental oxygen as needed
Decadron-no change
Nebulizers
Mucolytic's
Incentive spirometry
Aspiration precautions
CT chest 08/03/2023-no pulmonary embolism, mild bibasilar subsegmental atelectasis
Monitor blood sugar
Insulin supplementation as needed
She has been recommended in the past to follow-up with pulmonary given allergic asthma but she has not followed through.She does not take any maintenance inhalers in the outpatient setting.
She has been recommended to get a sleep apnea evaluation and she has not followed through.
DVT prophylaxis
Nutrition
Early mobilization
Outpatient pulmonary follow-up
Subjective Data
-
Date of Service:
Date of Service: August 04, 2023
Chief Complaint: Pulmonary Follow Up and Dyspnea Follow Up
Subjective:
Still with significant shortness of breath, some chest tightness and wheezing, no chest pain or abdominal pain
Review of Systems
General: Other (per HPI)
Objective Data
Data Reviewed
Vital Signs / I&O:
Vital Signs
Temp Pulse Resp BP Pulse Ox
98.2 F 88 16 144/83 99
08/04/23 11:00 08/04/23 11:39 08/04/23 11:39 08/04/23 11:00 08/04/23 11:00
Intake and Output
08/03/23 08/04/23 08/05/23
06:59 06:59 06:59
Intake Total 1080 / 1080
Balance 1080 / 1080
SaO2: 99
Nasal Cannula flow liters per minute: 2
Physical Exam
General: Respiratory Distress (n) and Comfortable
HEENT: Normocephalic, Anicteric and Moist Mucous Membranes
Cardiovascular: Regular Rhythm
Respiratory: Wheeze (Forced end expiratory), Crackles (n), Rhonchi (n), Non-Labored Respirations, Accessory Resp Muscle Use (n) and Stridor (n)
GI: Soft, Non Distended and Non Tender
Neurology: Awake, Alert and No Motor Deficits
Skin: Warm, Good Color, Cyanosis (n), Jaundice (n) and Rash (n)
Labs/Micro/Reports
Microbiology
08/03/23 06:30 Nasal Swab Influenza Types A & B (ALLAN) - Final
Negative for Influenza A & B, NAAT
Negative results must be combined with clinical observations
and patient history.
Nucleic Acid Amplification test (NAAT)performed on the
[employer] platform.
[2023-08-04 15:42] LABS: Glucose - Point of Care 146 mg/dl (70-99)
[2023-08-04] MEDS: LOVENOX 40 MG SC (17:31)
--- NOTE | 2023-08-04 17:55 | CON.MD ---
Consultation - Medical
-
Pt seen & evaluated at bedside with daughter present. Psychiatry consulted for concerns of possible panic attack in the context of asthma exacerbation w/ COPD.
Pt appeared upset when informed that I was from psychiatry team and, prior to my being able to ask any questions, exclaimed 'now let me tell you something, I know why you're here, and I'll tell you now, I didn't have no panic attack!'. To note, she
was pleasant and cooperative, however also very adamant about not having panic attacks or anxiety. Her daughter also agreed with this.
She did report a hx of depression and PTSD, however she said that she is managing these diagnoses with the help of a therapist whom she sees regularly. She reported that she has found therapy helpful for working through her prior symptoms of
depression/PTSD. She also noted that she does not shy away from addressing mental health concerns and if she struggled with anxiety she would address it - it seems that this is partially what was upsetting her about the idea of a panic attack being
brought up. I did reassure her that it was not unusual for psychiatry to be consulted in such a situation as it is not uncommon for panic attacks to present as/contribute to asthma or copd exacerbation.
Given that she was upset about the psychiatry consult and her adamant denial of anxiety/panic attacks, we did not probe further into her history as she said she is not open to any further psychiatric changes or input.
Depression/PTSD as per pts report
MSE: female, good eye contact, cooperative, upset about consult but otherwise quite pleasant and jovial. Mood is 'fine', affect is appropriate. Denies si/hi/avh/delusions. Thought process is linear, logical & goal directed. Fully oriented. Memory
not formally tested. Insight/judgement fair.
No psychiatric recommendations at this time - even if there is an anxiety component here, she is too defended at this time and is unlikely to be open to such discussions for the time being
[2023-08-04] MEDS: SEROQUEL 300 MG PO (20:46)
[2023-08-04 20:54] LABS: Glucose - Point of Care 119 mg/dl (70-99)
[2023-08-04] MEDS: LANTUS 0.299999999999999989 UNITS SC (20:56)
--- NOTE | 2023-08-04 23:13 | PTCARENOTE ---
Pt. very anxious, refusing Xanax, explained to pt. the benefit of taking Xanax, pt. wants to speak to psych tomorrow.
--- NOTE | 2023-08-04 23:50 | W.PN.UPDATE ---
Update Note
Progress Note Update
Patient is so anxious, refused to take Xanax as ordered and requested to receive morphine. She mentioned that morphine was received yesterday with similar episode and was effective. One time order of morphine 1mg IV was placed. Patient was placed on
psych consult earlier today for suspecting panic attack.
[2023-08-05] VITALS (7 sets, daily range): BP systolic 114–161; BP diastolic 60–96; BMI 29.6
[2023-08-05] MEDS: DECADRON 4 MG IV ×3 (00:05→19:59)
[2023-08-05] MEDS: FLUSH (NSS) 1 FLUSH IV ×3 (00:05→20:00)
[2023-08-05] MEDS: NITROSTAT (SUBLINGUAL) 0.400000000000000022 MG SL ×5 (00:07→22:18)
[2023-08-05] MEDS: XOPENEX 0.63 MG INHALANT SOLUTION 0.630000000000000004 MG INH (00:09)
[2023-08-05] MEDS: MORPHINE SULFATE 1 MG IV (00:52)
[2023-08-05] MEDS: DUONEB 3 ML INH ×4 (07:28→18:10)
[2023-08-05 07:57] LABS: Glucose - Point of Care 140 mg/dl (70-99)
[2023-08-05] MEDS: NOVOLOG FLEXPEN-MODERATE RESISTANCE SC ×2 (08:33→12:26)
[2023-08-05] MEDS: ZOLOFT 200 MG PO (08:34)
[2023-08-05] MEDS: ZESTRIL 10 MG PO (08:34)
[2023-08-05] MEDS: NOVOLOG FLEXPEN 20 UNITS SC ×3 (09:25→17:35)
--- NOTE | 2023-08-05 10:53 | W.PN.HOSP.TC ---
Addendum entered and electronically signed by Jaylen Gale DO 08/05/23 13:10:
Pulse ox 98% on room air with ambulation according to nurse.
Consult PT for weakness.
Family arrived and they are quite angry about taking her home. They feel that she is not ready. I spoke with daughter on the phone and told her that she can stay overnight but she is otherwise medically stable for discharge.
Original Note:
Today's Communication/Plan
-
Ambulatory pulse ox on room air
Discharge planning
Assessment / Plan
Assessment / Plan
Gen-AAOx3, NAD, obese
HEENT-NC, AT, anicteric, clear oral mm
Neck-supple
CV-reg, no M, +S1/S2
Lungs-decreased breath sounds bilaterally
Abd-soft, NT, ND
Ext-no edema
Musculoskeletal-no cyanosis, clubbing
Skin-warm and dry
Neuro-grossly non-focal
Psych-calm, cooperative
Acute hypoxic respiratory insufficiency -suspect due to asthma exacerbation as well as severe anxiety disorder. No evidence of heart failure. Chest x-ray read as clear, low lung volumes. Elevated D-dimer noted but CT chest negative for pulmonary
embolism.
Acute asthma exacerbation -not wheezing on exam but does have significantly decreased breath sounds bilaterally. Continue steroids, nebs. Pulmonary following. On Flovent and albuterol at home on as needed basis. 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
Anxiety disorder -suspect she also gets panic attacks. Consult psychiatry. As needed Xanax ordered, but patient refusing to take. Not on benzodiazepines at home.
Troponin elevation - Suspect troponin elevation is a non-CO troponin elevation related to acute asthma exacerbation. Repeat troponins are lower.
Chronic normocytic anemia -will need outpatient follow-up with PCP.
DM2 with hyperglycemia -glucose 140 this morning. Anticipate steroid-induced hyperglycemia as well. Hemoglobin A1c 9.0%. Continue Lantus 30 units at bedtime, aspart 20 units AC, moderate dose aspart scale.
Essential hypertension with hypertensive urgency -repeat blood pressure improving. Continue home medications.
Bipolar depression
obesity due to excess calories
Full code
Dispo -check ambulatory pulse ox on room air. Appears medically stable for discharge. Awaiting psychiatry input.
Anticipated Discharge: Today
Subjective/Interval History
-
Date of Service: August 05, 2023
Patient seen and examined. She was sleeping when I walked in the room but complaining of shortness of breath when I wake her up.
Objective Data
-
Vital Signs:
Vital Signs
Temp Pulse Resp BP Pulse Ox
97.8 F 71 16 151/85 99
08/05/23 07:00 08/05/23 07:32 08/05/23 07:32 08/05/23 07:00 08/05/23 07:32
I&O
08/04/23 08/05/23 08/06/23
06:59 06:59 06:59
Intake Total 1080 / 1080 1260 / 1260
Balance 1080 / 1080 1260 / 1260
Review of Systems
-
History Source: Patient
All other systems: Reviewed and negative
[2023-08-05 12:02] LABS: Glucose - Point of Care 132 mg/dl (70-99)
--- NOTE | 2023-08-05 12:33 | CM ---
CM following re: d/c planning.
CM met with pt and daughter at bedside to complete IA.
Pt resides alone in apartment. She states she is independent with mobility and ADLs.
She denies need for DME. Home o2 assessment completed, no home o2 needs at this time.
Pt's daughter resides locally and checks in daily.
PCP is Dr. Josie Wray, pharmacy [facility].
Daughter is concerned about impending d/c.
We discussed d/c planning and CM offered to arrange VN for pt.
CM answered all questions. At this time, pt would like to think about it.
CM will check back in about this prior to d/c.
Goal: home, possibly with VN.
--- NOTE | 2023-08-05 13:16 | W.PN.PUL.V3 ---
Today's Communication / Plan
-
Decrease Decadron
Nebulizers
Increase activity
Anxiolytics per primary team
Assessment
-
67-year-old woman with history of asthma, hypertension, type 2 diabetes came to the emergency room on 08/02/2023 complaining of shortness of breath. Patient states that she woke up at 4 AM on with shortness of breath and chest tightness.
Patient's have been using her nebulizer at home without improvement. Denies any phlegm production, hemoptysis, fevers or chills.
She has been feeling well up until .
Denies any recent sick contacts. Denies any leg edema.
Symptoms did not improve with intensive nebulizer in the emergency room and she was admitted for further evaluation.
Exertional dyspnea: -Multifactorial: Possible asthma exacerbation/with increased D-dimer rule out pulm embolic disease.
Chest x-ray 08/03/2023, reviewedwithout acute abnormalities. Low lung volumes.
Normal proBNP/slightly increased troponin on admission-now normalized
Slightly increased D-dimer.
SARS Cov2 negative
Flu negative
Conditions present prior admission:
Morbid obesity
Asthma, not well controlled
Triggers include seasonal allergies
Has 3 cats at home
Does not follow with OP Pulm
Allergic rhinitis
IgE 08/13/14: 892 - 06/01/14: 997 - 06/13/08: 4121
Bipolar disorder
Hypertension
Anemia of chronic disease
Suspected obstructive sleep apnea-she has never had a sleep study
Type 2 diabetes
Echocardiogram 11/27/2022:Moderate LVH.
Normal LVEF. Normal right ventricle size and function. No significant valvular abnormalities.
Plan
Respiratory status improved-anxiety component suspected
Supplemental oxygen as needed
Decadron-begin to decrease-May be contributing to anxiety
Nebulizers continue
Mucolytic's continue
Incentive spirometry
Aspiration precautions
CT chest 08/03/2023-no pulmonary embolism, mild bibasilar subsegmental atelectasis
Anxiety suspected
Patient on Zoloft and Seroquel as an outpatient
Follow blood sugar
Insulin supplementation as needed
She has been recommended in the past to follow-up with pulmonary given allergic asthma but she has not followed through.She does not take any maintenance inhalers in the outpatient setting.
She has been recommended to get a sleep apnea evaluation and she has not followed through.
DVT prophylaxis
Nutrition
Early mobilization
Outpatient pulmonary follow-up
Subjective Data
-
Date of Service:
Date of Service: August 05, 2023
Chief Complaint: Pulmonary Follow Up and Dyspnea Follow Up
Subjective:
Still with significant shortness of breath, no chest pain, productive cough, or abdominal pain, states usually does not have panic attacks, 'morphine' helped her sleep
Review of Systems
General: Other (Per HPI)
Objective Data
Data Reviewed
Vital Signs / I&O:
Vital Signs
Temp Pulse Resp BP Pulse Ox
98.1 F 59 16 129/68 97
08/05/23 11:55 08/05/23 11:55 08/05/23 11:55 08/05/23 11:55 08/05/23 11:55
Intake and Output
08/04/23 08/05/23 08/06/23
06:59 06:59 06:59
Intake Total 1080 / 1080 1260 / 1260
Balance 1080 / 1080 1260 / 1260
SaO2: 97
Nasal Cannula flow liters per minute: 2
Physical Exam
General: Respiratory Distress (n) and Comfortable
HEENT: Normocephalic, Anicteric and Moist Mucous Membranes
Cardiovascular: Regular Rhythm
Respiratory: Wheeze (Forced end expiratory), Crackles (n), Rhonchi (n), Non-Labored Respirations, Accessory Resp Muscle Use (n) and Stridor (n)
GI: Soft, Non Distended and Non Tender
Neurology: Awake, Alert and No Motor Deficits
Skin: Warm, Good Color, Cyanosis (n), Jaundice (n) and Rash (n)
Labs/Micro/Reports
Lab Data
08/04/23 06:00
08/04/23 06:00
Microbiology
08/03/23 06:30 Nasal Swab Influenza Types A & B (ALLAN) - Final
Negative for Influenza A & B, NAAT
Negative results must be combined with clinical observations
and patient history.
Nucleic Acid Amplification test (NAAT)performed on the
[employer] platform.
[2023-08-05 17:02] LABS: Glucose - Point of Care 212 mg/dl (70-99)
[2023-08-05] MEDS: NOVOLOG FLEXPEN-MODERATE RESISTANCE 3 UNITS SC (17:34)
[2023-08-05] MEDS: LOVENOX 40 MG SC (17:35)
[2023-08-05 21:32] LABS: Glucose - Point of Care 92 mg/dl (70-99)
[2023-08-05] MEDS: SEROQUEL 300 MG PO (21:36)
[2023-08-05] MEDS: LANTUS 0.149999999999999994 UNITS SC (22:06)
[2023-08-06 03:13] LABS: Glucose - Point of Care 135 mg/dl (70-99)
[2023-08-06 03:18] VITALS: BP 161/87
[2023-08-06] MEDS: NITROSTAT (SUBLINGUAL) 0.400000000000000022 MG SL ×2 (03:23→08:02)
[2023-08-06] MEDS: XOPENEX 0.63 MG INHALANT SOLUTION 0.630000000000000004 MG INH (03:56)
[2023-08-06 04:48] VITALS: BMI 29.6
[2023-08-06 07:26] VITALS: BP 127/78
[2023-08-06 07:51] LABS: Glucose - Point of Care 113 mg/dl (70-99)
[2023-08-06] MEDS: DUONEB 3 ML INH (07:57)
[2023-08-06] MEDS: NOVOLOG FLEXPEN-MODERATE RESISTANCE SC (08:01)
[2023-08-06] MEDS: ZOLOFT 200 MG PO (08:01)
[2023-08-06] MEDS: NOVOLOG FLEXPEN SC (08:01)
[2023-08-06] MEDS: ZESTRIL 10 MG PO (08:02)
[2023-08-06] MEDS: DECADRON 4 MG IV (08:02)
--- NOTE | 2023-08-06 09:18 | W.PN.PUL3 ---
Today's Communication / Plan
-
Transition IV steroids to PO, with long taper
Can do 40mg over 1 week, 30mg over 1 week, etc until off
Continue outpatient inhalers
We reviewed need for outpatient pulmonary FU
Education on IS to be provided, home breathing exercises, increased walking daily
Discharge instructions per team
Assessment
-
67-year-old woman with history of asthma, hypertension, type 2 diabetes came to the emergency room on 08/02/2023 complaining of shortness of breath. Patient states that she woke up at 4 AM on with shortness of breath and chest tightness.
Patient's have been using her nebulizer at home without improvement. She has been feeling well up until . Symptoms did not improve with intensive nebulizer in the emergency room and she was admitted for further evaluation.
Exertional dyspnea
Acute asthma exacerbation, poorly compliant
Has not yet seen OP pulmonary despite past recommendations
Increased D-dimer
Chest x-ray 08/03/2023, reviewed without acute abnormalities. Low lung volumes.
Normal proBNP/slightly increased troponin on admission-now normalized
Slightly increased D-dimer.
SARS Cov2 negative
Flu negative
Conditions present prior admission:
Morbid obesity
Asthma, not well controlled
Triggers include seasonal allergies
Has 3 cats at home
Does not follow with OP Pulm
Allergic rhinitis
IgE 08/13/14: 892 - 06/01/14: 997 - 06/13/08: 4121
Bipolar disorder
Hypertension
Anemia of chronic disease
Suspected obstructive sleep apnea-she has never had a sleep study
Type 2 diabetes
Echocardiogram 11/27/2022:Moderate LVH.
Normal LVEF. Normal right ventricle size and function. No significant valvular abnormalities.
Plan
Respiratory status improved-anxiety component suspected
Supplemental oxygen as needed, she is currently stable on RA
Decadron-begin to decrease-May be contributing to anxiety
I will transition to prednisone, can taper over long course
We discussed breathing exercises, IS with education
Nebulizers continue
Mucolytic's continue
Incentive spirometry
Aspiration precautions
CT chest 08/03/2023-no pulmonary embolism, mild bibasilar subsegmental atelectasis
Imaging reviewed
Anxiety suspected
Patient on Zoloft and Seroquel as an outpatient
Follow blood sugar
Insulin supplementation as needed
She has been recommended in the past to follow-up with pulmonary given allergic asthma but she has not followed through.
She does not take any maintenance inhalers in the outpatient setting.
She has been recommended to get a sleep apnea evaluation and she has not followed through.
DVT prophylaxis
Nutrition
Early mobilization
Outpatient pulmonary follow-up
Discharge planning per team
Subjective Data
-
Date of Service:
Date of Service: August 06, 2023
Chief Complaint: Pulmonary Follow Up
Subjective:
Patient seen and examined, no acute events ON
Stable on RA
She feels her SOB is still present
Objective Data
Data Reviewed
Vital Signs / I&O / Oxygen:
Vital Signs
Temp Pulse Resp BP Pulse Ox
98.3 F 69 16 127/78 96
08/06/23 07:26 08/06/23 07:26 08/06/23 08:00 08/06/23 07:26 08/06/23 07:26
Intake and Output
08/05/23 08/06/23 08/07/23
06:59 06:59 06:59
Intake Total 1260 / 1260 1440 / 1440
Output Total 250 / 250
Balance 1260 / 1260 1190 / 1190
SaO2 96
Nasal Cannula flow liters per 2
minute
Physical Exam
General: Respiratory Distress (n), Comfortable, Good Appetite and Other (overweight)
HEENT: Normocephalic, Anicteric and Moist Mucous Membranes
Cardiovascular: Regular Rhythm
Respiratory: Clear, Crackles (n), Rhonchi (n), Non-Labored Respirations, Accessory Resp Muscle Use (n) and Stridor (n)
GI: Soft, Non Distended, Non Tender and Normal Bowel Sounds
Neurology: Awake, Alert, Oriented, AO x 3 and No Motor Deficits
Skin: Warm, Good Color, Cyanosis (n), Jaundice (n) and Rash (n)
Labs/Micro/Reports
Lab Data
08/04/23 06:00
08/04/23 06:00
Microbiology
08/03/23 06:30 Nasal Swab Influenza Types A & B (ALLAN) - Final
Negative for Influenza A & B, NAAT
Negative results must be combined with clinical observations
and patient history.
Nucleic Acid Amplification test (NAAT)performed on the
[employer] platform.
[2023-08-06 10:38] VITALS: BP 140/72; PULSE 71; O2SAT 98
--- NOTE | 2023-08-06 10:51 | CM ---
Addendum entered by Molly Hua 08/06/23 11:58:
Spoke with patient and daughter.
Patient and daughter skilled rehab declined.
Plan: home today with outpatient therapy.
Script provided.
Daughter will transport home.
Original Note:
Per PT recommendations, patient would benefit from skilled rehab.
Discussed with patient, she would like CM to speak with Clyde who is on her way here.
Options list to be reviewed.
Plan: possible skilled rehab.
[2023-08-06] MEDS: DUONEB INH (11:52)
[2023-08-06 12:00] LABS: Glucose - Point of Care 230 mg/dl (70-99)
[2023-08-06] MEDS: NOVOLOG FLEXPEN-MODERATE RESISTANCE 3 UNITS SC (12:01)
[2023-08-06] MEDS: NOVOLOG FLEXPEN 20 UNITS SC (12:01)
--- NOTE | 2023-08-06 12:12 | W.PN.HOSP.TC ---
Addendum entered and electronically signed by Neptali Persaud MD 08/07/23 17:18:
[id number]
Original Note:
Today's Communication/Plan
-
pred taper
f/u pulm, cards, pcp outpatient
possible stress test outpatient as per cards
Assessment / Plan
Assessment / Plan
Gen-AAOx3, NAD, obese
HEENT-NC, AT, anicteric, clear oral mm
Neck-supple
CV-reg, no M, +S1/S2
Pulmonary: CTAB
Abd-soft, NT, ND
Ext-no edema
Musculoskeletal-no cyanosis, clubbing
Skin-warm and dry
Neuro-grossly non-focal
Psych-calm, cooperative
Acute asthma exacerbation -not wheezing on exam but does have significantly decreased breath sounds bilaterally. Continue steroids, nebs. Pulmonary following. On Flovent and albuterol at home on as needed basis. CTAB on auscultation; pred taper
40mg x 7 days and drop by 10mg every 7 days until off. COntinue outpatient inhalers. F/u pulmonary outpatient. Education on IS to be provided, home breathing exercises, increased walking daily
Anxiety disorder -suspect she also gets panic attacks. As needed Xanax ordered, but patient refusing to take. Not on benzodiazepines at home. Rec outpatient psych eval.
Troponin elevation - Suspect troponin elevation is a non-NC troponin elevation related to acute asthma exacerbation. Repeat troponins are lower. possibly 2/2 to acute stress from asthma exacerbation. CAn f/u with stress test/cards f/u outpatient.
ECHO in 12/15 - no wall motion abnormalities.
Chronic normocytic anemia -will need outpatient follow-up with PCP.
DM2 with hyperglycemia -glucose 140 this morning. Anticipate steroid-induced hyperglycemia as well. Hemoglobin A1c 9.0%. Continue Lantus 30 units at bedtime, aspart 20 units AC, moderate dose aspart scale.
Essential hypertension with hypertensive urgency -repeat blood pressure improving. Continue home medications.
Bipolar depression
obesity due to excess calories
Full code
More than 30 minutes spent in discharge including
Final examination of the patient
Summarizing hospital stay
Instructions for continuing care to all relevant caregivers
Preparation of discharge records, prescriptions, and referral forms
Total time spent (35 in minutes):
Anticipated Discharge: Today
Subjective/Interval History
-
Date of Service: August 06, 2023
Patient clear to auscultation bilaterally, no acute vents overnight. Speaking full sentences
Objective Data
-
Vital Signs:
Vital Signs
Temp Pulse Resp BP Pulse Ox
98.3 F 69 16 127/78 96
08/06/23 07:26 08/06/23 07:26 08/06/23 08:00 08/06/23 07:26 08/06/23 08:25
I&O
08/05/23 08/06/23 08/07/23
06:59 06:59 06:59
Intake Total 1260 / 1260 1440 / 1440
Output Total 250 / 250
Balance 1260 / 1260 1190 / 1190
Review of Systems
-
History Source: Patient
All other systems: Reviewed and negative
Data Reviewed
-
Total Time Spent with Patient (in minutes): 34
Labs: Labs Reviewed by me
--- NOTE | 2023-08-06 12:18 | W.DS.TRANS ---
DC Summary - Senior Housekeeper
-
Discharge Instructions:
Discharge Diagnosis/Procedures Exertional dyspnea
Acute asthma exacerbation, poorly compliant
Diet Diabetic, Carb Controlled
Activity As tolerated
Blood Work hgba1c in 3 months
Instructions:
Stand-Alone Forms:
Changes to Home Medications: No
Discharge Medications:
DC Medications w/original date entered in [employer]
sertraline 100 mg tablet (Zoloft) 200 mg PO DAILY Mental Health/Anxiety ##0 02/02/19
quetiapine 300 mg tablet (Seroquel) 300 mg PO HS Mental Health/Anxiety 11/23/22
albuterol sulfate 90 mcg/actuation aerosol inhaler (Ventolin HFA) 4 puff inhalation Q2H PRN shortness of breath or wheezing #8.5 grams 11/28/22
insulin glargine 100 unit/mL (3 mL) subcutaneous pen (Lantus Solostar U-100 Insulin) 30 unit (0.3 mL) SC HS Diabetes #0 mL 11/28/22
lisinopril 10 mg-hydrochlorothiazide 12.5 mg tablet 1 tab PO DAILY #30 tabs 11/28/22
insulin aspart U-100 100 unit/mL (3 mL) subcutaneous pen (Novolog FlexPen U-100 Insulin aspart) 20 unit SC AC Diabetes 08/03/23
prednisone 10 mg tablet See Rx Instructions .Route .COMPLEX #70 tabs 08/06/23
Home Medication Changes
prednisone 10 mg tablet See Rx Instructions .Route .COMPLEX #70 tabs 08/06/23
Pending Results: No
== END 2023-08-06 12:49 | disposition home or self-care (01) | DRG 202 ==
LOC: 4 WEST ACU 07:09
PROVIDERS: Hospitalist; ADMITTING PHYSICIAN Hospitalist; ATTENDING PHYSICIAN Internal Medicine; CONSULT PHYSICIAN Internal Medicine Critical Care Medicine; EMERGENCY PHYSICIAN Student in an Organized Health Care Education/Training Program; OTHER PHYSICIAN Psychiatry & Neurology Psychiatry
DX: J45.41 Moderate persistent asthma with (acute) exacerbation (principal); F31.30 Bipolar disorder, current episode depressed, mild or moderate severity, unspecified; J44.1 Chronic obstructive pulmonary disease with (acute) exacerbation; I5A Non-ischemic myocardial injury (non-traumatic); E11.65 Type 2 diabetes mellitus with hyperglycemia; I10 Essential (primary) hypertension; D63.8 Anemia in other chronic diseases classified elsewhere; E66.01 Morbid (severe) obesity due to excess calories; E11.8 Type 2 diabetes mellitus with unspecified complications; F41.9 Anxiety disorder, unspecified; Z11.52 Encounter for screening for COVID-19; Z87.891 Personal history of nicotine dependence; Z91.199 Patient's noncompliance with other medical treatment and regimen due to unspecified reason; Z68.29 Body mass index [BMI] 29.0-29.9, adult
CPT/HCPCS: 71046; 71275; 80053; 82962; 83036; 83880; 84484; 85025; 85379; 87502; 87811; 93005; 94640; 96374; 97162; 99285; Q9967